=== PATIENT | male | born 1995 | race Caucasian/White ===

== ENCOUNTER 2019-03-11 17:45 | Emergency (ER) | payer OTHER ==
[~2019-03-11] VITALS: Ht 172.7 cm; Wt 56.7 kg
[2019-03-11 17:45] VITALS: BP_SYST 126
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
--- NOTE | 2019-03-11 17:45 | NUR ---
BROUGHT BACK TO BED #1 AND TRIAGED, REPORT GIVEN TO PARI
--- NOTE | 2019-03-11 17:50 | NUR ---
DR HYDE AT BEDSIDE FOR EVALUATION
[2019-03-11] MEDS ORDERED: DIPH-TET-PERTUS Vaccine 0.5 ML VIAL (ADACEL) I.M. ONE (18:00)
[2019-03-11 18:25] VITALS: BP_SYST 126
--- NOTE | 2019-03-11 18:25 | NUR ---
Patient given written and verbal discharge instructions and verbalizes understanding. ER MD discussed with patient the results and treatment provided. Patient in stable condition. ID arm band removed. Rx not given. Patient educated on pain management and to follow up with PMD. Pain Scale 0/10. Opportunity for questions provided and answered. Medication side effect fact sheet provided.
== END 2019-03-11 18:25 | disposition home or self-care (01) ==
LOC: SED 17:45
DX: S61.412A Laceration without foreign body of left hand, initial encounter (principal); W45.8XXA Other foreign body or object entering through skin, initial encounter; Y93.89 Activity, other specified; Y92.89 Other specified places as the place of occurrence of the external cause; Y99.8 Other external cause status
CPT/HCPCS: 90715; 99283

== ENCOUNTER 2020-08-01 15:10 | Emergency (ER) | payer OTHER ==
[~2020-08-01] VITALS: Ht 172.7 cm; Wt 61.2 kg
[2020-08-01 15:20] VITALS: BP_SYST 131
[2020-08-01 15:48] VITALS: BP_SYST 131
== END 2020-08-01 15:49 | disposition home or self-care (01) ==
LOC: SED 15:10
DX: S61.412A Laceration without foreign body of left hand, initial encounter (principal); W26.8XXA Contact with other sharp object(s), not elsewhere classified, initial encounter; Y93.G1 Activity, food preparation and clean up; Y92.89 Other specified places as the place of occurrence of the external cause; Y99.8 Other external cause status
CPT/HCPCS: 99281